=== PATIENT | female | born 1970 | race Caucasian/White ===

== ENCOUNTER 2018-08-12 00:50 | Emergency (ER) | payer OTHER, MEDICAID, SELFPAY ==
--- NOTE | 2018-08-12 | DI.RAD.S_ITS ---
PROCEDURE: XR HAND RT MIN 3V INDICATIONS: POST REDUCTION TECHNIQUE: 3 views of the hand(s) acquired. COMPARISON: [facility], CR, XR HAND RT MIN 3V, 08/12/2018, 1:19. FINDINGS: Bones: Anterior dislocation at the surgical proximal interphalangeal joint is reduced. The alignment is anatomic. Carpal bones are normally aligned. No suspicious bony lesions. Soft tissues: No suspicious soft tissue calcifications. IMPRESSION: Anatomic alignment status post closed reduction of the third proximal interphalangeal joint dislocation. Dictated by: Deirdre Constantino M.D. on 08/12/2018 at 8:43 Approved by: Deirdre Constantino M.D. on 08/12/2018 at 8:45
[2018-08-12 00:56] VITALS: BP 129/90; PULSE 103; RESP 18; TEMP 36.7; O2SAT 96
--- NOTE | 2018-08-12 01:07 | DI.RAD.S_ITS ---
PROCEDURE: XR HAND RT MIN 3V INDICATIONS: right hand injury TECHNIQUE: 3 views of the hand(s) acquired. COMPARISON: None. FINDINGS: Bones: There is anterior dislocation at the third proximal interphalangeal joint. No fractures visualized. Carpal bones are normally aligned. No suspicious bony lesions. Soft tissues: No suspicious soft tissue calcifications. IMPRESSION: Anterior dislocation of the middle finger at the third proximal interphalangeal joint. No fractures visualized. Dictated by: Deirdre Constantino M.D. on 08/12/2018 at 8:42 Approved by: Deirdre Constantino M.D. on 08/12/2018 at 8:43
--- NOTE | 2018-08-12 01:37 | PC.NURSE ---
DO Russell at bedside, digital block done to right third finger and finger relocated.
--- NOTE | 2018-08-12 01:41 | ED.UPPEXIN ---
HPI - Extremity Injury (Upper) General Chief Complaint: Extremity Injury, Upper Stated Complaint: fall, right hand injury cuts swelling Time Seen by Provider: 08/12/18 01:20 Source: patient and police Mode of arrival: ambulatory Limitations: no limitations History of Present Illness HPI narrative: Patient presents with right middle finger pain and injury. She said that she was driving he is out of her 's hand when she has only had pain in that right middle finger. There is an obvious deformity. She does have some superficial lacerations on fingers as well. She was found walking down the street when police noticed her and brought her in. She is under arrest. Related Data Home Medications Medication Instructions Recorded Confirmed dextroamphetamine-amphetamine 08/12/18 [Adderall] sertraline [Zoloft] 08/12/18 trazodone 08/12/18 Allergies Allergy/AdvReac Type Severity Reaction Status Date / Time acetaminophen [From Vicodin] AdvReac Verified 08/12/18 01:03 hydrocodone [From Vicodin] AdvReac Verified 08/12/18 01:03 Review of Systems Review of Systems GENERAL: Denies chills,fever HEENT: Denies throat pain RESPIRATORY: Denies dyspnea, cough, wheezing CARDIOVASCULAR: Denies chest pain, palpitations GASTROINTESTINAL: Denies nausea, vomiting MUSCULOSKELETAL: See HPI SKIN: No rash, no laceration, no pruritus NEUROLOGIC: Denies weakness, dizziness, headache, numbness 8 point review of systems is negative except for those stated above and HPI PFSH Medical History ADHD (Acute) Depression (Acute) Social History Smoking Status: Never smoker Exam Initial Vital Signs Initial Vital Signs: Vital Signs Temperature 98.0 F 08/12/18 00:56 Pulse Rate 103 H 08/12/18 00:56 Respiratory Rate 18 08/12/18 00:56 Blood Pressure 129/90 08/12/18 00:56 Pulse Oximetry 96 08/12/18 00:56 GENERAL: Crying of set CARDIOVASCULAR: peripheral pulses in tact, cap refill <2 sec RESPIRATORY: No respiratory distress, speaks in full sentences without difficulty EXTREMITIES: Normal range of motion, no clubbing or edema. Neurovascularly intact Right hand middle finger at PIP dislocation neurovascularly intact. Superficial scratches on fingers has been no significant swelling of either hand. Neurovascularly intact. NEUROLOGICAL: Cranial nerves II through XII grossly intact. Normal gait and speech. SKIN: Warm, dry, no petechiae, no rashes or lesions. Procedures Nerve Block Nerve Block 1: Time out performed: Yes Local Anesthetic: lidocaine 1% Amount of anesthesia used (mL): 2 Side: right Nerve Blocks: other (Digital) Procedure Successful: Yes Patient Tolerated Procedure: Well Complications: none Orthopedic Joint Reduction Joint #1: Time Out Performed: Yes Side: right Joint Reduction Location: other (Middle finger PIP) Analgesia: nerve block Local Anesthesia: lidocaine 1% Amount of anesthesic used (mL): 2 Technique used: traction/counter-traction Post-reduction neuro exam: intact Post-reduction vascular: intact Post Reduction X-Ray Obtained: Yes Post Reduction X-Ray Results: reduced Splint Applied: Yes Patient Tolerated Procedure: Well Course Orders Ordered: ED Orders 08/12/18 XR hand RT min 3V Stat 08/12/18 01:07 XR hand RT min 3V Stat Vital Signs - 8 hr 08/12/18 00:56 Temperature 98.0 F Pulse Rate 103 H Respiratory Rate 18 Blood Pressure 129/90 Pulse Oximetry 96 MDM - Extremity Injury (Upper) Imaging Data Right hand x-ray 1.: Attestation: I personally reviewed and interpreted this imaging study as follows: My impression: Dislocation right middle PIP no fracture Right hand x-ray 2.: Attestation: I personally reviewed and interpreted this imaging study as follows: My impression: Alignment of PIP no fracture Discharge Plan Departure Patient Disposition: Released, Other Clinical Impression: Closed dislocation of interphalangeal joint of right middle finger Discharge Date/Time: 08/12/18 02:05 Interventions: ED Discharge Assessment Last Done: 08/12/18 02:01 Instructions: Finger Dislocation Activity Restrictions/Additional Instructions: It for senior care *You have been diagnosed with right middle finger dislocation *What to do: keep in finger splint as needed for pain *Continue to take medications as directed Tylenol and/or Motrin as needed for pain *Follow up with your primary care provider in 2-3 days *Return to ER if you should have numbness, tingling or any new, worsening or concerning symptoms Prescriptions: No Action dextroamphetamine-amphetamine [Adderall] 15 mg Tablet RF: 0 sertraline [Zoloft] 50 mg Tablet RF: 0 trazodone 50 mg Tablet RF: 0 Referrals: Ray Fisher DO [Primary Care Provider] -
[2018-08-12 02:00] VITALS: BP 126/69; PULSE 96; RESP 18; O2SAT 98
[2018-08-12 02:01] VITALS: BP 126/69; PULSE 96; RESP 18; O2SAT 98
== END 2018-08-12 02:05 | disposition home or self-care (01) ==
PROVIDERS: Emergency Provider Emergency Medicine; Family Provider Internal Medicine; PCP Internal Medicine
DX: S63.272A Dislocation of unspecified interphalangeal joint of right middle finger, initial encounter (principal)
CPT/HCPCS: 26755; 64450; 73130; 99282; 99283

== ENCOUNTER 2018-08-27 22:27 | Emergency (ER) | payer OTHER, MEDICAID, SELFPAY ==
[2018-08-27 22:36] VITALS: BP 125/75; PULSE 73; RESP 20; TEMP 36.8; O2SAT 98
--- NOTE | 2018-08-27 23:23 | DI.RAD.S_ITS ---
PROCEDURE: XR HAND RT MIN 3V INDICATIONS: possible middle finger dislocation TECHNIQUE: 3 views of the hand(s) acquired. COMPARISON: [facility], CR, XR HAND RT MIN 3V, 08/12/2018, 1:27. FINDINGS: Bones: The third proximal interphalangeal joint is dislocated with volar displacement of the third middle phalange. Small, linear bone fragment is noted adjacent to the head of the third proximal phalange compatible with avulsion fracture. Soft tissues: No suspicious soft tissue calcifications. Soft tissue swelling noted in the third digit. IMPRESSION: Third proximal interphalangeal joint dislocation with small avulsion fracture. Dictated by: Rubina Lopez MD, PhD on 08/28/2018 at 7:57 Approved by: Rubina Lopez MD, PhD on 08/28/2018 at 7:58
--- NOTE | 2018-08-27 23:23 | ED_ITS ---
HPI - Extremity Problem General Chief complaint: Extremity Problem,Nontraumatic Stated complaint: Finger swelling Time Seen by Provider: 08/27/18 23:05 Source: patient Mode of arrival: ambulatory Limitations: no limitations History of Present Illness HPI Narrative: Patient is a 48-year-old female who was seen here in the emergency department several days ago for a dislocation of the right middle finger proximal interphalangeal joint. It was reduced during that visit and confirmed with a follow-up x-ray. At some point after that the patient stated that the joint again dislocated. She was seen at an outside facility where she stated that she thought that they reduced it at that time as well. She also states she followed up with a ?hand surgeon ?at the [facility] where she stated that they repeated an x-ray and it was dislocated again. She stated that the physician's acute care nursing assistant at that clinic attempted multiple times to reduce it but was unable to reduce it. She was told that she needed to follow up with an orthopedic surgeon which she has not done. She also has many reasons as to why she did not follow up with her primary doctor. She is in a splint. She came to the emergency department today because she ?burned through ?all of her pain medication. Related Data Home Medications Medication Instructions Recorded Confirmed dextroamphetamine-amphetamine 08/12/18 [Adderall] sertraline [Zoloft] 08/12/18 trazodone 08/12/18 Allergies Allergy/AdvReac Type Severity Reaction Status Date / Time acetaminophen [From Vicodin] AdvReac Verified 08/12/18 01:03 hydrocodone [From Vicodin] AdvReac Verified 08/12/18 01:03 Review of Systems Constitutional Denies fever(s) Musculoskeletal Denies myalgias, Reports deformity (Right middle finger), Reports arthralgias ( Right middle finger), Reports joint swelling (Right middle finger), Reports limited range of motion (Right middle finger), Denies numbness and Denies tingling Integumentary/Breasts Denies lesions and Denies rash Neurologic Denies numbness, Denies sensory deficit, Denies tingling and Denies paresthesias Comments: [facility] Medical History ADHD (Acute) Depression (Acute) Social History Smoking Status: Never smoker Exam Initial Vital Signs Initial Vital Signs: Vital Signs Temperature 98.3 F 08/27/18 22:36 Pulse Rate 73 08/27/18 22:36 Respiratory Rate 20 08/27/18 22:36 Blood Pressure 125/75 08/27/18 22:36 Pulse Oximetry 98 08/27/18 22:36 Const General: cooperative, well developed, well groomed and No acute distress Orientation: alert, awake and oriented x3 Resp Effort & Inspection: normal respiratory effort Skin Lesions: no lesions Rashes: no rashes Neuro General: alert, awake and oriented x3 Extrem General: capillary refill normal Other: Obvious deformity to the right middle finger PIP joint. Patient did come with a aluminum splint on that finger. Psych Appearance: grossly normal and well kempt Course Orders Ordered: ED Orders 08/27/18 23:23 XR hand RT min 3V Stat Discontinued Medications Oxycodone/Acetaminophen (Endocet 5/325 Prepack) 1 bottle MISC SEEINSTR ONE Stop: 08/27/18 23:43 Vital Signs - 8 hr 08/27/18 22:36 Temperature 98.3 F Pulse Rate 73 Respiratory Rate 20 Blood Pressure 125/75 Pulse Oximetry 98 MDM - Extremity (Nontraumatic) Imaging Data Right: Attestation: I personally reviewed and interpreted this imaging study as follows: My impression: Dislocation of the right PIP joint without fracture MDM Narrative Medical decision making narrative: I informed the patient of the x-ray findings today. I informed her that the finger did need to be reduced however she declined my offer to attempt reduction here in the emergency department. Patient was alert oriented x3. In my opinion has the capacity to make decisions. I informed her that now is not the time to switch primary care doctor's. I informed her that if she did not want me to reduce the finger here in the emergency department that she does need to follow up with Orthopedics. She was given the phone number for the [facility] Orthopedic group. I informed her that this was not an emergency for which she needed admitted to the hospital or for which the orthopedic doctors needed to come to the emergency department. I informed her that the emergency department will no longer fill pain medication for this injury. She was neurovascularly intact. Patient expressed understanding of the plan. Discharge Plan Departure Patient Disposition: Home Clinical Impression: Dislocation of interphalangeal joint of right middle finger Instructions: DI for Finger Dislocation Activity Restrictions/Additional Instructions: The emergency department can no longer provide pain medication for this injury. You need to follow up with your primary care doctor or an orthopedic surgeon. You can call the [facility] Orthopedic group at [phone]. You declined my offer to try to reduce the dislocation today. I would contact the [facility] Orthopedic group tomorrow for a follow-up. Prescriptions: No Action dextroamphetamine-amphetamine [Adderall] 15 mg Tablet RF: 0 sertraline [Zoloft] 50 mg Tablet RF: 0 trazodone 50 mg Tablet RF: 0
[2018-08-28] MEDS: OXYCODONE/APAP 5/325 PREPACK 1 BOTTLE MISC (00:01)
--- NOTE | 2018-08-28 00:17 | PC.NURSE ---
rt 3rd digit pain/swelling, reports dislocated digit during fall >1wk ago. <2 sec cap refill to digit, sensation normal for pt. Pt arrives with splint she states was placed by orthopedics 2 days ago, states they attempted to reduce digit but were not able to, was given instructions to follow up for surgical intervention. Pt reports ETOH tonight, some slurred/rapid speech.
== END 2018-08-28 00:21 | disposition home or self-care (01) ==
PROVIDERS: Emergency Provider Emergency Medicine; Family Provider Internal Medicine; PCP Internal Medicine
DX: S63.272A Dislocation of unspecified interphalangeal joint of right middle finger, initial encounter (principal)
CPT/HCPCS: 29130; 73130; 99282; 99283

== ENCOUNTER 2018-11-25 11:59 | Emergency (ER) | payer OTHER, MEDICAID, SELFPAY ==
[2018-11-25 12:03] VITALS: BP 119/74; PULSE 69; RESP 18; TEMP 36.7; O2SAT 97; BMI 31.4
--- NOTE | 2018-11-25 12:55 | ED_ITS ---
HPI - Extremity Injury (Upper) <PARMINDER Sorto - Last Filed: 11/25/18 21:51> General Chief Complaint: Extremity Injury, Upper Stated Complaint: NEED STICHES OUT OF MIDDLE FINGER RT HAND INFECTED Time Seen by Provider: 11/25/18 12:54 Source: patient Mode of arrival: ambulatory Limitations: no limitations History of Present Illness HPI narrative: 48-year-old healthy female that is a nonsmoker here for complaint of a eating sutures removed from her right middle finger. She had surgery to her right middle finger by Hand surgery in [place] to repair tendons secondary to injury that caused this dislocation. She was supposed to have the sutures removed at the end of October however due to weather was not able to get to [place] for the appointment. She denies any new trauma to the right middle finger. She states that the skin is starting to grow over the sutures and would like the finger to be evaluated to make sure that there is no infection. No fevers no chills. No drainage from the area. No other concerns or complaints at this timeframe. Related Data Home Medications Medication Instructions Recorded Confirmed sertraline [Zoloft] 50 mg PO DAILY 08/12/18 11/25/18 trazodone 50 mg PO BEDTIME 08/12/18 11/25/18 dextroamphetamine-amphetamine 30 mg PO DAILY 11/25/18 11/25/18 ibuprofen 600 mg PO TID 11/25/18 11/25/18 Allergies Allergy/AdvReac Type Severity Reaction Status Date / Time acetaminophen [From Vicodin] AdvReac Verified 08/12/18 01:03 hydrocodone [From Vicodin] AdvReac Verified 08/12/18 01:03 Review of Systems <PARMINDER Sorto - Last Filed: 11/25/18 21:51> Constitutional Denies chills, Denies fever(s), Denies lethargy and Denies weakness Eyes Denies change in vision, Denies eye discharge, Denies irritation and Denies loss of vision ENT Ears, Nose, Mouth, and Throat: Denies change in voice, Denies neck pain and Denies sore throat Cardiovascular Denies chest pain, Denies irregular heart rhythm, Denies lightheadedness, Denies palpitations, Denies dyspnea, Denies dyspnea on exertion and Denies orthopnea Respiratory Denies cough, Denies dyspnea, Denies dyspnea on exertion and Denies wheezing Gastrointestinal Gastrointestinal: Denies abdominal pain, Denies change in bowel habits, Denies diarrhea, Denies nausea and Denies vomiting Genitourinary Denies hematuria, Denies flank pain, Denies urinary incontinence and Denies urinary urgency Musculoskeletal Denies neck pain Comments: Need sutures removed to right Neurologic Denies loss of vision and Denies weakness Endocrine Denies palpitations Allergic/Immunologic Denies wheezing PFSH <PARMINDER Sorto - Last Filed: 11/25/18 21:51> Medical History ADHD (Acute) Depression (Acute) Social History Smoking Status: Never smoker Social History Smoking Status: Never smoker Exam <PARMINDER Sorto - Last Filed: 11/25/18 21:51> Initial Vital Signs Initial Vital Signs: Vital Signs Temperature 98.0 F 11/25/18 12:03 Pulse Rate 69 11/25/18 12:03 Respiratory Rate 18 11/25/18 12:03 Blood Pressure 119/74 11/25/18 12:03 Pulse Oximetry 97 11/25/18 12:03 Const General: cooperative and well developed Nutritional Appearance: well nourished Orientation: alert, awake, oriented x3 and not confused [facility] Mouth: oral mucosae normal and moist mucous membranes Eyes Conjunctivae: conjunctivae normal Sclera: sclerae normal Pupils: PERRL EOM: EOM intact bilaterally Resp Effort & Inspection: normal respiratory effort, able to speak in complete sentences, no respiratory distress and no use of accessory muscles Auscultation: clear to auscultation bilaterally, no rales, no rhonchi and no wheezes Cardio Rate: regular rate Rhythm: regular rhythm Heart Sounds: no click, no gallops, no murmurs and no rubs Pulses: normal peripheral pulses Skin General: no rashes or lesions noted, No jaundice and No petechiae Neuro General: alert, oriented x3, gait normal and no focal motor deficits Speech: speech normal Extrem Other: Right middle finger with surgical incision site into dorsal aspect of the right middle finger in between the PIP and the PIP. Three sutures are in place. No signs of infection. Distal sensation is intact. Patient has range of motion of the right middle finger although is slightly reduced with extent of range of motion secondary to the surgery not new finding. Incision site appears to be healing well. <Laureano Lowry DO - Last Filed: 11/26/18 18:22> Initial Vital Signs Initial Vital Signs: Vital Signs Temperature 98.0 F 11/25/18 12:03 Pulse Rate 69 11/25/18 12:03 Respiratory Rate 18 11/25/18 12:03 Blood Pressure 119/74 11/25/18 12:03 Pulse Oximetry 97 11/25/18 12:03 Course <PARMINDER Sorto - Last Filed: 11/25/18 21:51> Vital Signs - 8 hr 11/25/18 13:57 Temperature 98.1 F Pulse Rate 62 Respiratory Rate 16 Blood Pressure [Left Arm] 127/72 Pulse Oximetry 98 <Laureano Lowry DO - Last Filed: 11/26/18 18:22> Vital Signs - 8 hr 11/25/18 13:57 Temperature 98.1 F Pulse Rate 62 Respiratory Rate 16 Blood Pressure [Left Arm] 127/72 Pulse Oximetry 98 MDM - Extremity Injury (Upper) <PARMINDER Sorto - Last Filed: 11/25/18 21:51> MDM Narrative Medical decision making narrative: Do not appreciate signs of infection at this time appears that incision site is healing well. Sutures were removed today. Will have her follow up with Hand surgery the in the next week for further ev aluation. For any worsening symptoms return to the emergency room. Dress in seizures site with bacitracin daily where sutures removed until healed. Discharge Plan Departure Patient Disposition: Home Clinical Impression: Dislocation of finger Qualifiers: Encounter type: sequela Qualified Code(s): S63.259S - Unspecified dislocation of unspecified finger, sequela Discharge Date/Time: 11/25/18 14:00 Interventions: ED Discharge Assessment Last Done: 11/25/18 13:55 Instructions: How to Care for a Surgical Wound Activity Restrictions/Additional Instructions: Incision site to right middle finger appears to be healing well. Do not appreciate signs of infection at this timeframe. Sutures removed today. Dress incision area daily with bacitracin until completely healed. Follow up with Hand Surgeon. For any worsening symptoms return to the emergency room. Prescriptions: No Action dextroamphetamine-amphetamine 10 mg capsule,extended release 24hr 30 mg PO DAILY RF: 0 ibuprofen 600 mg tablet 600 mg PO TID RF: 0 sertraline [Zoloft] 50 mg Tablet 50 mg PO DAILY RF: 0 trazodone 50 mg Tablet 50 mg PO BEDTIME RF: 0 Referrals: Ray Fisher DO [Primary Care Provider] - <Laureano Lowry DO - Last Filed: 11/26/18 18:22> Cosign ED Attending Yoselinature Attestation: I was immediately available in the department for consultation. Documentation has been reviewed. I agree with assessment and plan.
[2018-11-25 13:57] VITALS: BP 127/72; PULSE 62; RESP 16; TEMP 36.7; O2SAT 98
== END 2018-11-25 14:00 | disposition home or self-care (01) ==
PROVIDERS: Emergency Provider Nurse Practitioner Family; Family Provider Internal Medicine; PCP Internal Medicine
DX: Z48.02 Encounter for removal of sutures (principal)
CPT/HCPCS: 99282

== ENCOUNTER 2018-11-27 22:36 | Emergency (ER) | payer OTHER, MEDICAID, SELFPAY ==
[2018-11-27 22:42] VITALS: BP 125/80; PULSE 96; RESP 15; TEMP 36.5; O2SAT 97; BMI 31.4
[2018-11-28] MEDS: AMOXICILLIN 250 MG PREPACK 1 BOTTLE MISC (00:44)
--- NOTE | 2018-11-28 00:50 | ED_ITS ---
HPI - URI/Sore Throat General Chief Complaint: Recheck/Abnormal Lab/Rx Stated Complaint: Strep throat Time Seen by Provider: 11/28/18 00:36 Source: patient Mode of arrival: ambulatory Limitations: no limitations History of Present Illness HPI Narrative: PATIENT IS A 48-YEAR-OLD FEMALE WHO PRESENTS WITH SORE THROAT. SHE WAS DIAGNOSED WITH STREP TODAY AT THE [facility]. SHE HAS A PRESCRIPTION FOR AMOXICILLIN. UNFORTUNATELY HER BOYFRIEND DID NOT BOBBIN INSPECTOR THE ANTIBIOTIC HE SAID HE WOULD AND SHE IS WANTING HER 1ST DOSE OF ANTIBIOTICS. Related Data Home Medications Medication Instructions Recorded Confirmed sertraline [Zoloft] 50 mg PO DAILY 08/12/18 11/27/18 trazodone 50 mg PO BEDTIME 08/12/18 11/27/18 dextroamphetamine-amphetamine 30 mg PO DAILY 11/25/18 11/27/18 ibuprofen 600 mg PO TID 11/25/18 11/27/18 Previous Rx's Medication Instructions Recorded amoxicillin 500 mg capsule 500 mg PO BID #20 cap 11/27/18 Allergies Allergy/AdvReac Type Severity Reaction Status Date / Time diphenhydramine AdvReac Verified 11/27/18 22:41 [From Benadryl] Review of Systems Review of Systems GENERAL: Denies chills,fever HEENT: See HPI RESPIRATORY: Denies dyspnea, cough, wheezing CARDIOVASCULAR: Denies chest pain, palpitations GASTROINTESTINAL: Denies nausea, vomiting MUSCULOSKELETAL: Denies extremity pain, injury SKIN: No rash, no laceration, no pruritus NEUROLOGIC: Denies weakness, dizziness, headache, numbness 8 point review of systems is negative except for those stated above and HPI PFSH Medical History ADHD (Acute) Depression (Acute) Social History Smoking Status: Never smoker Social History Smoking Status: Never smoker Exam Initial Vital Signs Initial Vital Signs: Vital Signs Temperature 97.7 F 11/27/18 22:42 Pulse Rate 96 H 11/27/18 22:42 Respiratory Rate 15 11/27/18 22:42 Blood Pressure 125/80 11/27/18 22:42 Pulse Oximetry 97 11/27/18 22:42 GENERAL: alert well-appearing female no acute distress HEENT: Head atraumatic,EOMI, Neck is supple no meningeal signs PHARYNX: erythematous with exudative tonsils airway patent no uvula swelling or deviation CARDIOVASCULAR: Regular rate and rhythm without murmurs, rubs or gallops. RESPIRATORY: Breath sounds equal bilaterally, no wheezes rales or rhonchi. ABDOMEN: Soft, nontender. Normoactive bowel sounds all 4 quadrants. No guarding or rebound. EXTREMITIES: Normal range of motion, no clubbing or edema. Neurovascularly intact NEUROLOGICAL: Alert and oriented x4.Normal gait and speech. SKIN: Warm, dry, no laceration, no petechiae, no rashes or lesions. Course Orders Ordered: Discontinued Medications Amoxicillin ( Trimox 250mg Prepack) 1 bottle MISC SEEINSTR ONE Stop: 11/28/18 00:37 Last Admin: 11/28/18 00:44 Dose: 1 bottle Vital Signs - 8 hr 11/27/18 22:42 11/28/18 01:21 Temperature 97.7 F 97.9 F Pulse Rate 96 H 67 Respiratory Rate 15 Blood Pressure 125/80 Pulse Oximetry 97 96 Discharge Plan Departure Patient Disposition: Home Clinical Impression: Pharyngitis Qualifiers: Pharyngitis/tonsillitis etiology: streptococcus Qualified Code(s): J02.0 - Streptococcal pharyngitis Discharge Date/Time: 11/28/18 01:23 Interventions: ED Discharge Assessment Last Done: 11/28/18 01:21 Instructions: DI for Strep Throat Activity Restrictions/Additional Instructions: *You have been diagnosed with strep pharyngitis *What to do: increase fluid *Continue to take medications as directed 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
[2018-11-28 01:21] VITALS: PULSE 67; TEMP 36.6; O2SAT 96
== END 2018-11-28 01:23 | disposition home or self-care (01) ==
PROVIDERS: Emergency Provider Emergency Medicine; Family Provider Internal Medicine; PCP Internal Medicine
DX: J02.0 Streptococcal pharyngitis (principal)
CPT/HCPCS: 99282

== ENCOUNTER → 2018-12-06 09:53 | Outpatient (CLI) | payer OTHER, MEDICAID, SELFPAY | PROVIDERS: Family Provider Internal Medicine; PCP Internal Medicine; Visit Provider Physician Assistant | DX: J02.9 Acute pharyngitis, unspecified (principal) | CPT/HCPCS: 87070; 87077 ==